=== PATIENT | male | born 1985 | race Caucasian/White ===

== ENCOUNTER 2016-07-17 12:40 | Emergency (ER) | payer OTHER, BC ==
--- NOTE | 2016-07-17 13:50 | ERNOTE ---
Animal Bite ER Time Seen by Provider: 07/17/16 13:42 Source: patient Exam Limitations: no limitations Immunizations: IMMUNIZATION HX Immunizations Up to Date Yes History of Influenza Vaccine No Allergies/Adverse Reactions: Allergies No Known Allergies Allergy (Unverified 02/15/16 13:17) Home Medications: HOME MEDICATIONS oxyCODONE HCL/ACETAMINOPHEN [Percocet 5 MG/325 MG] 1 - 2 tab PO Q4H PRN #30 tab 02/15/16 [Last Taken Unknown] Diclofenac Sodium 75 mg PO BID 02/20/16 [Last Taken Unknown] FLUoxetine HCL [Fluoxetine HCl] 20 mg PO DAILY 02/20/16 [Last Taken Unknown] Amox Tr/Potassium Clavulanate [Augmentin 875-125 Tablet] 875 mg PO Q12H #20 tab 07/17/16 [Last Taken Unknown] Narrative: pt is here for a dog bite to the right breast which happened at work just prior to presentation to ED. Pt can not recall his last Tetanus. Review of Systems - Review of Systems Constitutional: Present: no symptoms reported EYE: Present: no symptoms reported ENT: Present: no symptoms reported Respiratory: Present: no symptoms reported Cardiology: Present: no symptoms reported Gastrointestinal/Abdominal: Present: no symptoms reported Genitourinary: Present: no symptoms reported Musculoskeletal: Present: no symptoms reported Skin: Present: See HPI Neurological: Present: no symptoms reported - Patient's Past Medical History Patient History - Medical: Arthritis Patient History - Cardiac/Respiratory: No pertinent hx Patient History - Cancer: No Hx of Cancer Patient History - Surgical Procedures: Back Surgery, T & A, Other Patient History - Other: None - Social History Living Situations: home Psych History: No pertinent hx Smoking Status: Never smoker - Immunizations Immunizations Up to Date: Yes History of Influenza Vaccine: No Physical Exam - Physical Exam General Appearance: Present: wd/wn, alert, no apparent distress Ears, Nose, Throat: Present: normal ENT inspection Neck: Present: normal inspection, nontender, supple, full range of motion Respiratory: Present: no respiratory distress, normal breath sounds, no accessory muscle use, chest nontender, lungs clear Cardiovascular/Chest: Present: regular rate, rhythm, no murmur, normal peripheral pulses Gastrointestinal/Abdominal: Present: normal bowel sounds, nontender, nondistended, soft Neurological Exam: Present: alert, oriented, normal mood/affect, no motor/ sensory deficits Skin Exam: Present: normal color, other - there is an inverted V shaped laceration to just distal to right nipple. There is an open superficial laceration to the right pectoralis area. there is also an abrasion medial to the pectoralis laceration. ED Progress - Vital Signs Patient's Vital Signs:: I have reviewed the patient's vital signs. Vital Signs: Vital Signs 07/17/16 13:08 Temperature 37.5 C Pulse Rate 106 H Respiratory 16 Rate Blood Pressure 156/99 O2 Sat by Pulse 95 Oximetry - Progress/Reassessment Chief Complaint: Animal Bite Plan - Plan Plan: The areas of laceration was anesthetized and with 4 cc of Lidocaine and epi and area was extensively cleaned. Then using 4-0 prolene three sutures were used for closure of each laceration. Loose sutures were placed with spaces in between in case of infection. Pt tolerated procedure well. Pt was given Rocephin 2gm IV and will be treated with Augmentin 875mg BID Departure Clinical Impression: Dog bite Qualifiers: Encounter type: initial encounter Qualified Code(s): W54.0XXA - Bitten by dog, initial encounter - Departure Disposition: Home self-care Condition: Good Instructions: Animal Bite Additional Instructions: follow up in 48-72 hours for wound check. Referrals: Darshan Bond DO [Primary Care Provider] - Prescriptions: Amox Tr/Potassium Clavulanate [Augmentin 875-125 Tablet] 875 mg PO Q12H #20 tab
--- OUTSIDE RECORDS SUMMARY | 2016-07-17 13:57 | XMS REPORT | Continuity of Care Document ---
:1985 Author Organization [facility] ([facility]) Address [address] [place] [address] Phone [phone] Care Team Providers Name Role Phone Provider, No-Primary Care Primary Care Provider Unavailable Source Comments This disclosure is being made pursuant to the Care Everywhere program, applicable federal and state laws, and may not contain all informaitonavailable regarding this patient.[facility] ([facility]) Active Allergies and Adverse Reactions Allergen Noted Date Severity Reactions Comments Morphine 10/09/2009 Papules Current Medications Prescription Sig. Disp. Refills Start Date End Date Status diclofenac 75 mg EC Take 75 mg by mouth 5 03/27/2016 Active tablet 2 times daily. FLUoxetine 20 mg take 1 tablet (20 2 04/09/2016 Active tablet mg) by oral route once daily for 30 days oxyCODONE-acetaminoph TAKE 1 OR 2 TABLETS 0 02/15/2016 Active en 5-325 mg per BY MOUTH EVERY 4 tablet HOURS NEEDED FOR PAIN testosterone INJECT 200MG 5 03/27/2016 Active cypionate 200 mg/mL intramuscularly injection EVERY TWO WEEKS ibuprofen 200 mg Take 200 mg by mouth Active tablet as needed. cyclobenzaprine 10 mg Take 0.5-1 tablets 60 tablet 1 06/13/2016 Active tablet (5-10 mg total) by mouth 2 times daily as needed for Muscle spasms. meloxicam 7.5 mg Take 1 tablet (7.5 30 tablet 1 06/13/2016 Active tablet mg total) by mouth daily. 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 He fell into another ultimate hoops trainer, causing neck and back pain. He describes twisting has had heart to the right and immediately felt shooting, electric pain in his left posterior neck He was seen at [facility] emergency department on 02/05/[address] of his neck reported as no evidence of acute cervical spine fracture; central disc herniation suggested at C5-C6. He was treated with physical therapy and muscle relaxers. Problem Noted Date Encounter related to worker's compensation claim 02/14/2016 Neck 04/24/2016 Most Recent Encounters Date Type Specialty Providers Description 07/01/2016 Telephone Orthopaedic Willard Patel MD Dx: Neck pain (Primary Dx) 06/26/2016 Telephone Anesthesiology [place] [facility] Chief Comp: Other 06/13/2016 Office Visit Anesthesiology Ralph Olivera MD Dx: Myofascial pain 2, Pain Clinic (Primary Dx) Provider 06/12/2016 Office Visit Anesthesiology 2, Pain Clinic Chief Comp: Patient Provider Reported Reason For Visit 05/16/2016 Hospital Encounter Ariana Pickens MD Dx: Neck pain 05/07/2016 Telephone Orthopaedic Willard Patel MD Chief Comp: Appointment Info 04/24/2016 Hospital Encounter Radiology Willard Patel MD Chief Comp: Patient Db Manley, Reported Reason For MD Visit 04/24/2016 Hospital Encounter Radiology Willard Patel MD Chief Comp: Patient Db Manley, Reported Reason For MD Visit 04/24/2016 Hospital Encounter Radiology Willard Patel MD Chief Comp: Patient Db Manley, Reported Reason For MD Visit 04/24/2016 Hospital Encounter Willard Crowe MD Dx: Neck pain Db Manley MD 04/24/2016 Office Visit Orthopaedic Willard Patel MD Dx: Neck pain (Primary Dx) Social History Tobacco Use Types Packs/Day Years Used Date Never Smoker Smokeless Tobacco: Never Used Alcohol Use Drinks/Week oz/Week Comments Yes 1 Cans of beer 2 Standard drinks or equivalent Last Filed Vital Signs Vital Sign Reading Time Taken Blood Pressure 135/86 06/13/2016 9:08 AM CDT Pulse 86 06/13/2016 9:08 AM CDT Temperature 36.2 C (97.2 F) 06/13/2016 9:08 AM CDT Respiratory Rate - - Height 1.88 m (6' 2") 06/13/2016 9:08 AM CDT Weight 108.4 kg (238 lb 15.7 oz) 06/13/2016 9:08 AM CDT Body Mass Index 30.67 06/13/2016 9:08 AM CDT Oxygen Saturation 99% 06/13/2016 9:08 AM CDT Plan of Care Date Type Specialty Providers Description 09/12/2016 Appointment Anesthesiology 1, Pain Clinic Provider Chief Comp: Patient Reported Reason For Visit Health Maintenance Due Date Last Done Comments Hepatitis B Vaccine (1 of 3 - Primary Series) 1984 Tdap Vaccine 05/23/1995 Lipid Disorder Screening 2002 MMR Vaccine 2002 Td Vaccine 2002 Varicella Vaccine (1 of 2 - Adult - No Evidence of 2002 Immunity) Influenza Vaccine: Seasonal (Season Ended) 2016 Results from Last 3 Months MRI SPINE CERVICAL WO CONTRAST ([id number]) (05/16/2016 9:44 AM) Impressions Impression: 1. Small central/left paracentral disc protrusion at C5-C6 causing minimal effacement of the thecal sac. 2. Poorly visualized flow void in the left vertebral artery may represent hypoplastic vertebral artery versus vascular injury. If there is clinical concern, consider further evaluation with dedicated CT contrast enhanced exam. Narrative Procedure: MRI SPINE CERVICAL WO CONTRAST ([id number]) Indication: Hyper extension injury with neck pain and radicular symptoms. Evaluate for disc herniation Technique: Multisequence, multiplanar MRI of the cervical spine without IV contrast. Exam was performed using a degenerative joint disease protocol. Comparison: Cervical spine radiographs dated 04/24/2016 Findings: There is normal alignment without evidence of acute fracture or dislocation. Vertebral body heights are well-maintained. Visualized cord is within normal limits. Normal marrow signal. Prevertebral soft tissues are unremarkable. Poorly visualized flow-void in the left vertebral artery. Individual disc levels are as follows: C2-C3: No significant disc disease or stenosis. C3-C4: No significant disc disease or stenosis. C4-C5: No significant disc disease or stenosis. C5-C6: Small central/left paracentral disc protrusion causing minimal effacement of the thecal sac. No significant neuroforaminal narrowing. C6-C7: No significant disc disease or stenosis. C7-T1: No significant disc disease or stenosis. Procedure Note Say, Incoming Imaging Results - ThuMay 16, 2016 7:14 PM CDT Procedure: MRI SPINE CERVICAL WO CONTRAST ([id number]) Indication: Hyper extension injury with neck pain and radicular symptoms. Evaluate for disc herniation Technique: Multisequence, multiplanar MRI of the cervical spine without IV contrast. Exam was performed using a degenerative joint disease protocol. Comparison: Cervical spine radiographs dated 04/24/2016 Findings: There is normal alignment without evidence of acute fracture or dislocation. Vertebral body heights are well-maintained. Visualized cord is within normal limits. Normal marrow signal. Prevertebral soft tissues are unremarkable. Poorly visualized flow-void in the left vertebral artery. Individual disc levels are as follows: C2-C3: No significant disc disease or stenosis. C3-C4: No significant disc disease or stenosis. C4-C5: No significant disc disease or stenosis. C5-C6: Small central/left paracentral disc protrusion causing minimal effacement of the thecal sac. No significant neuroforaminal narrowing. C6-C7: No significant disc disease or stenosis. C7-T1: No significant disc disease or stenosis. IMPRESSION Impression: 1. Small central/left paracentral disc protrusion at C5-C6 causing minimal effacement of the thecal sac. 2. Poorly visualized flow void in the left vertebral artery may represent hypoplastic vertebral artery versus vascular injury. If there is clinical concern, consider further evaluation with dedicated CT contrast enhanced exam. EXTERNAL PL FILMS - STORE ONLY (04/24/2016 2:02 PM)Only the most recent of2 resultswithin the time period is included.EXTERNAL CT - STORE ONLY (04/24/2016 1:49 PM)C SPINE COMPLETE, INCL OBL& FLEX/EXT LAT (04/24/2016 1:30 PM) Impressions Findings / Impression: The spine is visualized from the skull base through C7. Normal alignment, without instability on flexion or extension. No fracture or dislocation. No prevertebral soft tissue swelling. No significant neural foraminal narrowing. Small uncal spurs at C5-6 on the AP view. Narrative Procedure: C SPINE COMPLETE, INCL OBL & FLEX/EXT LAT Clinical Indication: Neck pain. Comparison: None. 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 Comparison: None. IMPRESSION Findings / Impression: The spine is visualized from the skull base through C7. Normal alignment, without instability on flexion or extension. No fracture or dislocation. No prevertebral soft tissue swelling. No significant neural foraminal narrowing. Small uncal spurs at C5-6 on the AP view.
[2016-07-17] MEDS ORDERED: DIPHTH,PERTUSS(ACELL),TET VAC 0.5 ML VIAL IM ONE ×2 (14:33→14:48)
[2016-07-17 16:28] VITALS: BP 129/81
== END 2016-07-17 16:20 | disposition home or self-care (01) ==
LOC: ER 12:40
PROC: 0HQ5XZZ Repair Chest Skin, External Approach (ICD-10-PCS; principal; 2016-07-17)
DX: S21.011A Laceration without foreign body of right breast, initial encounter (principal); W54.0XXA Bitten by dog, initial encounter; Y93.89 Activity, other specified; Y92.89 Other specified places as the place of occurrence of the external cause; Y99.0 Civilian activity done for income or pay; M19.90 Unspecified osteoarthritis, unspecified site; Z23 Encounter for immunization

== ENCOUNTER 2016-07-19 17:34 | Emergency (ER) | payer OTHER, BC ==
[2016-07-19 17:46] VITALS: BP 135/96
--- OUTSIDE RECORDS SUMMARY | 2016-07-19 17:52 | XMS REPORT | Continuity of Care Document ---
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. He fell into another vocational trainer, causing neck and back pain. He describes twisting has had heart to the right and immediately felt shooting, electric pain in his left posterior neck He was seen at [facility] emergency department on 02/05/2016 with a [...] (Primary Dx) 06/26/2016 Telephone Anesthesiology [place] [facility] Chief Comp: Other 06/13/2016 Office Visit Anesthesiology [...] 3 Months MRI SPINE CERVICAL WO CONTRAST ([id number]) (05/16/2016 9:44 AM) Impressions Impression: 1. Small central/left paracentral disc protrusion at C5-C6 causing minimal effacement of the thecal sac. 2. Poorly visualized flow void in the left vertebral artery may represent hypoplastic vertebral artery versus vascular injury. If there is clinical concern, consider further evaluation with dedicated CT contrast enhanced exam. Narrative Procedure: MRI SPINE CERVICAL WO CONTRAST ([id number]) Indication: Hyper extension injury with neck pain [...] CDT Procedure: MRI SPINE CERVICAL WO CONTRAST ([id number]) Indication: Hyper extension injury with neck pain [...] Say, Incoming Imaging Results - [facility] Apr 24, 2016 3:47 PM MANA[facility] CENTER Procedure: C SPINE COMPLETE, INCL OBL & [...]
== END 2016-07-19 17:49 | disposition home or self-care (01) ==
LOC: ER 17:34
DX: Z48.02 Encounter for removal of sutures (principal)

== ENCOUNTER 2016-07-24 09:25 | Emergency (ER) | payer OTHER, BC ==
[2016-07-24 09:34] VITALS: BP 168/96
--- OUTSIDE RECORDS SUMMARY | 2016-07-24 09:38 | XMS REPORT | Continuity of Care Document ---
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 He describes twisting has had heart to the right and immediately felt shooting, electric pain in his left posterior neck He was seen at [facility] emergency department on 02/05/2016 with [...] 06/26/2016 Telephone Anesthesiology [place] [facility] Chief Comp: Other 06/13/2016 Office Visit Anesthesiology [...] 3 Months MRI SPINE CERVICAL WO CONTRAST ([id number]) (05/16/2016 9:44 AM) Impressions Impression: 1. Small central/left paracentral disc protrusion at C5-C6 causing minimal effacement of the thecal sac. 2. Poorly visualized flow void in the left vertebral artery may represent hypoplastic vertebral artery versus vascular injury. If there is clinical concern, consider further evaluation with dedicated CT contrast enhanced exam. 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
== END 2016-07-24 09:34 | disposition home or self-care (01) ==
LOC: ER 09:25
DX: Z48.02 Encounter for removal of sutures (principal)